=== PATIENT | male | born 1990 ===

== ENCOUNTER 2018-07-18 07:21 | Emergency (ER) | payer MEDICAID, OTHER ==
[2018-07-18 07:38] VITALS: BMI 31.3
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
--- NOTE | 2018-07-18 09:42 | CT ---
Date of service: 07/18/2018 PROCEDURE: CT Cervical Spine without contrast HISTORY: neck pain COMPARISON: None available. TECHNIQUE: Axial computed tomography images were obtained of the cervical spine without the use of intravenous contrast. Coronal and sagittal reformatted images were created and reviewed. Radiation dose: Total exam DLP = 399.93 mGy-cm. This CT exam was performed using one or more of the following dose reduction techniques: Automated exposure control, adjustment of the mA and/or kV according to patient size, and/or use of iterative reconstruction technique. FINDINGS: VERTEBRAE: The vertebral bodies are maintained in height. Normal alignment is maintained. There is mild dextroscoliotic curvature of the cervical spine. The atlantoaxial articulation and odontoid process are intact. DISCS/SPINAL CANAL/NEURAL FORAMINA: No significant central canal or neural foraminal stenosis. Discs heights are grossly preserved. PARASPINAL SOFT TISSUES: Unremarkable. OTHER FINDINGS: None. IMPRESSION: No fracture/dislocation. Mild dextroscoliosis. Otherwise unremarkable.
[2018-07-18 10:34] VITALS: BP 118/69; PULSE 78; RESP 16; TEMP 97.5; O2SAT 97
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
--- NOTE | 2018-07-18 11:15 | RAD ---
Date of service: 07/18/2018 PROCEDURE: Radiographs of the Right Shoulder HISTORY: shoulder pain COMPARISON: No prior. FINDINGS: BONES: No fracture. Possible small bone island of the glenoid. JOINTS: Normal. Glenohumeral and acromioclavicular joints preserved. No osteoarthritis. SOFT TISSUES: Normal. OTHER FINDINGS: None. IMPRESSION: No fracture/dislocation.
== END 2018-07-18 10:31 | disposition home or self-care (01) ==
LOC: H.ER 07:21
DX: M79.606 Pain in leg, unspecified (principal); M25.511 Pain in right shoulder; V43.52XA Car driver injured in collision with other type car in traffic accident, initial encounter; Y92.410 Unspecified street and highway as the place of occurrence of the external cause
CPT/HCPCS: 72125; 73030; 73552; 96372; 99284; J1885